=== PATIENT | male | born 1940 | race Caucasian/White ===

== ENCOUNTER 2019-07-06 05:21 | Emergency (ER) | payer MEDICARE ==
--- NOTE | 2019-07-06 05:34 | Emergency Department Record ---
History of Present Illness - General Source: Patient Mode of Arrival: Wheelchair Limitations: No limitations - History of Present Illness Initial comments: 79 yo male presents to ED for evaluation of blood in the urine noted appro ximately 20 minutes prior to arrival to the ED. Patient does report use of Xarelto, denies recent trauma, injury, or procedure to the urethra or bladder. Patient denies fevers, chills, flank pain, or abdominal pain symptoms. Patient also denies urinary retention symptoms. MD Complaint: Other (Hematuria) Onset/Timin -: Minutes(s) Severity: Moderate Consistency: Intermittent Improves with: None Worsens with: None Reports: Denies other symptoms <MIGUEL ANGEL VÁZQUEZ - Last Filed: 07/06/19 06:51> <Juan Marcano - Last Filed: 07/06/19 07:38> - General Chief complaint: Male Urogenital Problem Stated complaint: BLOOD IN URINE Time Seen by Provider: 07/06/19 05:23 - Related Data Home Medications Medication Instructions Recorded Confirmed Last Taken Ascorbic Acid [Vitamin C] 1 tab PO DAILY 07/06/19 07/06/19 07/05/19 Baclofen 5 mg PO BID 07/06/19 07/06/19 07/05/19 Bumetanide [Bumex] 0.5 mg PO DAILY 07/06/19 07/06/19 07/05/19 Ferrous Sulfate 325 mg PO DAILY 07/06/19 07/06/19 07/05/19 Omeprazole 40 mg PO BID 07/06/19 07/06/19 07/05/19 Polyethylene Glycol 3350 [Miralax] 17 gm PO DAILY 07/06/19 07/06/19 07/05/19 Rivaroxaban [Xarelto] 20 mg PO DAILY 07/06/19 07/06/19 07/05/19 Tamsulosin HCl [Flomax] 0.4 mg PO DAILY 07/06/19 07/06/19 07/05/19 Allergies Allergy/AdvReac Type Severity Reaction Status Date / Time No Known Drug Allergies Allergy Verified 07/06/19 05:34 Review of Systems Constitutional: Denies: Chills, Fever, Malaise, Night sweats Eyes: Denies: Eye discharge, Eye pain ENT: Denies: Congestion, Ear pain, Epistaxis Respiratory: Denies: Cough, Dyspnea Cardiovascular: Denies: Chest pain, Dyspnea on exertion Endocrine: Denies: Fatigue, Heat or cold intolerance Gastrointestinal: Denies: Abdominal pain, Nausea, Vomiting Genitourinary: Reports: Hematuria. Denies: Dysuria, Incontinence, Retention Musculoskeletal: Denies: Arthralgia, Back pain, Gout, Joint swelling Skin: Denies: Bruising, Change in color Neurological: Denies: Abnormal gait, Confusion, Headache, Seizure Psychiatric: Denies: Anxiety Hematological/Lymphatic: Reports: Easy bleeding, Easy bruising. Denies: Anemia, Blood Clots <MIGUEL ANGEL VÁZQUEZ - Last Filed: 07/06/19 06:51> Physical Exam - General General Appearance: Alert, Oriented x3, Cooperative, Mild distress Limitations: No limitations - Head Head exam: Atraumatic, Normocephalic, Normal inspection Head exam detail: negative: Abrasion, Contusion, Young's sign, General tenderness, Hematoma, Laceration - Eye Eye exam: Normal appearance. negative: Conjunctival injection, Periorbital swelling, Periorbital tenderness, Scleral icterus - ENT Ear exam: negative: Auricular hematoma, Auricular trauma Nasal Exam: negative: Active bleeding, Discharge, Dried blood, Foreign body Mouth exam: negative: Drooling, Laceration, Muffled voice, Tongue elevation - Neck Neck exam: Normal inspection. negative: Meningismus, Tenderness - Respiratory Respiratory exam: Normal lung sounds bilaterally. negative: Rales, Respiratory distress, Rhonchi, Stridor - Cardiovascular Cardiovascular Exam: Regular rate, Normal rhythm, Normal heart sounds - GI/Abdominal GI/Abdominal exam: Soft. negative: Rebound, Rigid, Tenderness - Rectal Rectal exam: Deferred - exam: Deferred - Extremities Extremities exam: Normal inspection. negative: Pedal edema, Tenderness - Back Back exam: Denies: CVA tenderness (R), CVA tenderness (L) - Neurological Neurological exam: Alert, Normal gait, Oriented X3 - Psychiatric Psychiatric exam: Normal affect, Normal mood - Skin Skin exam: Normal color. negative: Abrasion Type of lesion: negative: abrasion <MIGUEL ANGEL VÁZQUEZ - Last Filed: 07/06/19 06:51> Course Vital Signs 07/06/19 05:26 Temperature 97.8 F Pulse Rate [ 110 H Pulse Ox Probe] Respiratory 24 Rate Blood Pressure 134/89 [Left Arm] Pulse Ox 95 - Reevaluation(s) Reevaluation #1: 07/06/19 05:46 Patient was seen and examined No clinical evidence for acute urinary retention due to hematuria/clot in the urethra No clinical evidence for ureteral calculi based on patient's history and physical examination. 07/06/19 06:43 Laboratory studies were reviewed and appear grossly unremarkable for an acute process except for the following: Hgb 9.3 (patient reports previous 1 month ago was 9.4 in [place]) Patient has attempted to urinate x 2 without success. Patient drinking fluids to attempt to provide UA sample. Reevaluation #2: 07/06/19 06:51 Case was discussed with oncoming provider, will assume care and disposition pending UA result. <MIGUEL ANGEL VÁZQUEZ - Last Filed: 07/06/19 06:51> Vital Signs 07/06/19 05:26 Temperature 97.8 F Pulse Rate [ 110 H Pulse Ox Probe] Respiratory 24 Rate Blood Pressure 134/89 [Left Arm] Pulse Ox 95 - Reevaluation(s) Reevaluation #3: The patient is doing very well at this time. He denies any pain or discomfort. I did discuss the neg UA with the patient and the need for F/U with his PCP for further evaluation of the intermittent Hematuria. I also will refer the patient to Dr. Lopez for evaluation. 07/06/19 07:33 <Juan Marcano - Last Filed: 07/06/19 07:38> Medical Decision Making - Lab Data Result diagrams: 07/06/19 05:46 07/06/19 05:46 <MIGUEL ANGEL VÁZQUEZ - Last Filed: 07/06/19 06:51> - Lab Data Result diagrams: 07/06/19 05:46 07/06/19 05:46 Lab Results 07/06/19 07/06/19 07/06/19 Range/Units 05:46 05:46 07:20 WBC 5.4 (4.2-12.2) K/uL RBC 4.58 (4.40-5.70) M/uL Hgb 9.3 L (14.0-18.0) gm/dl Hct 35.2 L (42.0-52.0) % MCV 76.9 L (81-97) fl MCH 20.3 L (27-33) pg MCHC 26.4 L (32-36) g/dl RDW 18.8 H (11.5-14.5) % Plt Count 357 (130-400) K/uL MPV 8.5 (7.4-10.4) fl Gran % 51.8 (47-80) % Lymphocytes % 29.1 (16-45) % Monocytes % 13.5 H (0-9) % Eosinophils % 5.0 (0-6) % Basophils % 0.6 (0-6) % Absolute Neutrophils 2.80 Sodium 139 (136-145) mmol/L Potassium 4.2 (3.4-4.5) mmol/L Chloride 100 (98-107) mmol/L Carbon Dioxide 28.0 (22-29) mmol/L Anion Gap 11.0 (7-16) BUN 11 (8-23) mg/dL Creatinine 0.8 (0.7-1.2) mg/dL Estimated GFR > 60 mL/min Random Glucose 101 (74-109) mg/dL Calcium 9.2 (8.8-10.2) mg/dL Total Bilirubin 0.40 (0.2-1.0) mg/dL AST 21 (10.0-50.0) U/L ALT 12 (<41) U/L Alkaline Phosphatase 90 (40-129) U/L Total Protein 7.1 (6.6-8.7) g/dL Albumin 3.8 L (4.0-5.0) g/dL Globulin 3.3 (1.4-4.8) gm/dL Albumin/Globulin Ratio 1.2 (1.1-1.8) Urine Color Yellow Urine Appearance Clear Urine pH 6.5 (5.0-8.0) Ur Specific [place] <= 1.005 (1.002-1.030) Urine Protein Negative (NEGATIVE) Urine Glucose (UA) Negative (NEGATIVE) Urine Ketones Negative (NEGATIVE) Urine Blood Negative (NEGATIVE) Urine Nitrite Negative (NEGATIVE) Urine Bilirubin Negative (NEGATIVE) Urine Urobilinogen 0.2 (0.20 - 1.00) E.U./dL Ur Leukocyte Esterase Negative (NEGATIVE) <Juan Marcano - Last Filed: 07/06/19 07:38> Disposition Disposition: Discharge <MIGUEL ANGEL VÁZQUEZ - Last Filed: 07/06/19 06:51> Disposition: Discharge <Juan Marcano - Last Filed: 07/06/19 07:38> Clinical Impression: Hematuria Qualifiers: Hematuria type: unspecified type Qualified Code(s): R31.9 - Hematuria, unspecified Disposition: Home, Self-Care Condition: (2) Stable Instructions: Hematuria (ED) Additional Instructions: Return to ED if your symptoms worsen or if you have any concerns. Follow-up with John Jenkins in 3-5 days as directed. Referrals: Justin Lopez M.D. [MEDICAL DOCTOR] - [facility] [Provider Group] Forms: Patient Portal Access Quality - Quality Measures Quality Measures: N/A - Blood Pressure Screening Does Patient Have Any of the Following: No Blood Pressure Classification: Pre-Hypertensive BP Reading Systolic Measurement: 134 Diastolic Measurement: 89 Screening for High Blood Pressure: < Pre-Hypertensive BP, F/U Documented > [G8950] Pre-Hypertensive Follow-up Interventions: Referral to alternative/primary care provider. <MIGUEL ANGEL VÁZQUEZ - Last Filed: 07/06/19 06:51> - Quality Measures Quality Measures: N/A - Blood Pressure Screening View Details: Yes Does Patient Have Any of the Following: No Blood Pressure Classification: Pre-Hypertensive BP Reading Systolic Measurement: 134 Diastolic Measurement: 89 Screening for High Blood Pressure: < Pre-Hypertensive BP, F/U Documented > [G8950] Pre-Hypertensive Follow-up Interventions: Referral to alternative/primary care provider. <Juan Marcano - Last Filed: 07/06/19 07:38>
[2019-07-06 05:53] LABS: BASO % 0.6 % (0-6); GRAN % 51.8 % (47-80); HEMATOCRIT 35.2 % (42.0-52.0); HEMOGLOBIN 9.3 gm/dl (14.0-18.0); LYMPH % 29.1 % (16-45); MEAN CELL VOLUME 76.9 fl (81-97); MEAN CORPUSCULAR HEMOGLOBIN 20.3 pg (27-33); MEAN CORPUSCULAR HGB CONC 26.4 g/dl (32-36); MEAN PLATELET VOLUME 8.5 fl (7.4-10.4); MONO % 13.5 % (0-9); PLATELET COUNT 357 K/uL (130-400); RED BLOOD COUNT 4.58 M/uL (4.40-5.70); RED CELL DISTRIBUTION WIDTH 18.8 % (11.5-14.5); WHITE BLOOD COUNT W/O DIFF 5.4 K/uL (4.2-12.2)
[2019-07-06 06:02] LABS: BLOOD UREA NITROGEN 11 mg/dL (8-23); CREATININE 0.8 mg/dL (0.7-1.2); EST GLOMERULAR FILTRATION RATE > 60 mL/min
[2019-07-06 06:03] LABS: TOTAL PROTEIN 7.1 g/dL (6.6-8.7)
[2019-07-06 06:05] LABS: GLUCOSE,RANDOM 101 mg/dL (74-109)
[2019-07-06 06:08] LABS: ALB/GLOB RATIO 1.2 (1.1-1.8); ALBUMIN 3.8 g/dL (4.0-5.0); ALKALINE PHOSPHATASE 90 U/L (40-129); ALT/SGPT 12 U/L (<41); AST/SGOT 21 U/L (10.0-50.0)
[2019-07-06] MEDS ORDERED: BACLOFEN 10 MG TABLET PO SCH (07:00)
[2019-07-06 07:25] LABS: URINE APPEARANCE CLEAR; URINE BILIRUBIN NEGATIVE (NEGATIVE); URINE BLOOD NEGATIVE (NEGATIVE); URINE COLOR YELLOW; URINE GLUCOSE (UA) NEGATIVE (NEGATIVE); URINE KETONE NEGATIVE (NEGATIVE); URINE LEUKOCYTE ESTERASE NEGATIVE (NEGATIVE); URINE NITRITE NEGATIVE (NEGATIVE); URINE PROTEIN NEGATIVE (NEGATIVE); URINE UROBILINOGEN 0.2 E.U./dL (0.20 - 1.00)
== END 2019-07-06 07:42 | disposition home or self-care (01) ==
LOC: ER 05:21
DX: R31.0 Gross hematuria (principal); I48.91 Unspecified atrial fibrillation; Z79.01 Long term (current) use of anticoagulants
CPT/HCPCS: 80053; 81003; 85025; 99283